=== PATIENT | male | born 1965 | race Caucasian/White ===

== ENCOUNTER → 2017-10-08 | Outpatient (CLI) | payer BC ==
--- NOTE | 2017-10-08 15:31 | SFUN ---
SLEEP STUDY FOLLOW UP NOTE DATE OF SERVICE: 10/08/2017 A 51-year-old gentleman who has been followed in the Sleep Center for treatment of obstructive sleep apnea-hypopnea syndrome. Recently patient had a home sleep apnea test which showed apnea-hypopnea index 44.2 with O2 saturation of 77%. After that, patient had CPAP titration and at the pressure at 8 cm of water. According to results of followup test, patient breathing was totally normal. I discussed results of the sleep studies with patient in details. Subsequently, patient was started on treatment with CPAP and today he came for the first followup visit after he received his CPAP unit. Patient is using his CPAP equipment every night and feels better with the machine during the night and during the day. I checked his CPAP unit. CPAP pressure is 8 cm of water, usage is / nights and more than 4 hours nights with the leak of 30 L/minute which is acceptable. Apnea-hypopnea index reading from the machine is 11.5. [place] Sleepiness Scale today is 7. MEDICATIONS: Amlodipine, omeprazole. PHYSICAL EXAM: Patient in no distress. BP 140/95, HR 91, RR 16, weight 233.2. Patient increased his weight on 9 pounds since the test. Temperature 97.6, oxygen saturation on room air 97%. OROPHARYNX: Low position of soft palate. Neck Supple, no JVD. Thyroid is not palpable. LUNGS Clear to percussion and to auscultation. Good air exchange. No wheezing or rhonchi. HEART S1, S2 regular. No murmurs, gallops, or rubs. ABDOMEN Soft and nontender. Bowel sounds are present. No organomegaly appreciated. EXTREMITIES No clubbing or cyanosis. TOE LINING CLOSER Awake, alert, and oriented X3. Cranial nerves 2 to 7 intact. There is no fasciculation or atrophy. noted. No focal deficits observed. IMPRESSION: 1. Severe obstructive sleep apnea-hypopnea syndrome, apnea-hypopnea index 44.2 with oxygen saturation to 77%. Results of home sleep apnea test which would underestimate the numbers from normal events. 2. Patient demonstrated good compliance with treatment benefitting from treatment. 3. Patient increased his weight 9 pounds since titration, mild obesity. 4. Hypertension. 5. Acid reflux. PLAN: 1. I will increase CPAP pressure to 10 cm of water. 2. Patient will continue to use CPAP equipment every night. 3. Losing weight. 4. Sleep hygiene with regular time in bed for at least 8 hours. 5. No driving if feeling any sleepiness. Thank you very much for allowing me to participate in the management of your patient. Sincerely, Bry Dumont MD, PhD, FAASM Diplomat of [place] [employer] Specialties [place] Board of Internal Medicine Repairer General of [facility] [place] MMODL / HEATHERN: [id number] /
== END | disposition home or self-care (01) ==
LOC: SLEEP 13:25
PROVIDERS: ATTEND Internal Medicine
DX: G47.33 Obstructive sleep apnea (adult) (pediatric) (principal); I10 Essential (primary) hypertension; K21.9 Gastro-esophageal reflux disease without esophagitis; Z79.899 Other long term (current) drug therapy; Z99.89 Dependence on other enabling machines and devices

== ENCOUNTER → 2018-02-04 | Outpatient (CLI) | payer BC ==
--- NOTE | 2018-02-04 15:07 | PN ---
PROGRESS NOTE DATE OF SERVICE: 02/04/2018 [id number] gentleman has been followed in Sleep Center for treatment of obstructive sleep apnea-hypopnea syndrome. During last visit, I increased pressure in his CPAP unit up to 10 cm of water. According to patient, he feels better with this regimen. He sleeps better and feels better during the day. [place] Sleepiness Scale today is 5. I checked patient's CPAP unit. CPAP pressure is 10 cm of water. Usage is every night more than 4 hours, 20/30 nights. Average usage 4.7 hours. Leak 22 L/minute, which is acceptable. Apnea-hypopnea index in the range of 8 for the last month and for the last night is 6. MEDICATIONS: Amlodipine, omeprazole. PHYSICAL EXAM: Patient in no distress. BP 148/93, HR 88, RR 16, height 6 feet 0, weight 229.2, BMI 31. Temperature 98.1. Oxygen saturation on room air 95%. Oropharynx: Low position of soft palate. Neck Supple, no JVD. Thyroid is not palpable. LUNGS Clear to percussion and to auscultation. Good air exchange. No wheezing or rhonchi. HEART S1, S2 regular. No murmurs, gallops, or rubs. ABDOMEN: Soft and nontender. Bowel sounds are present. No organomegaly appreciated. EXTREMITIES No clubbing or cyanosis. COMPANY MANAGER Awake, alert, and oriented X3. Cranial nerves 2 to 7 intact. There is no fasciculation or atrophy. noted. No focal deficits observed. IMPRESSION: 1. Severe obstructive sleep apnea-hypopnea syndrome; apnea-hypopnea index 44.2 with O2 desaturation to 77% by results of home sleep study which could be even more in reality. The patient demonstrated good compliance with treatment benefitting from treatment. 2. Hypertension. 3. Acid reflux. 4. Very mild obesity BMI 31. PLAN: 1. The machine will be increased to 11 cm of water. 2. Patient will continue to use CPAP equipment every night for the whole night. 3. Watching and losing weight. 4. Sleep hygiene with regular time in bed for at least 8 hours. 5. No driving if feeling sleepiness. Thank you very much for allowing me to participate in management of your patient. Sincerely, Bry Dumont MD, PhD, FAASM Diplomat of [employer] Specialties [employer] Board of Internal Medicine Disaster Response Director of [facility] [place] MMJACQUELINE / HEATHERN: [id number] /
== END | disposition home or self-care (01) ==
LOC: SLEEP 14:05
PROVIDERS: ATTEND Internal Medicine
DX: G47.33 Obstructive sleep apnea (adult) (pediatric) (principal); I10 Essential (primary) hypertension; K21.9 Gastro-esophageal reflux disease without esophagitis; E66.9 Obesity, unspecified; Z68.31 Body mass index [BMI] 31.0-31.9, adult; Z79.899 Other long term (current) drug therapy

== ENCOUNTER → 2019-03-17 | Outpatient (CLI) | payer BC ==
--- NOTE | 2019-03-17 17:38 | PN ---
PROGRESS NOTE DATE OF SERVICE: 03/17/2019 This patient is a 53-year-old gentleman who has been followed in Sleep Center for treatment of obstructive sleep apnea-hypopnea syndrome. During his previous visit, which was about one year ago, apnea-hypopnea index was in the range of 8 for the month, and for the last night it was 6. I increased the pressure from 10 cm of water up, and at present the patient is on a pressure of 12 cm of water. Patient is able to use equipment every night for the whole night without problems related to mask fitting, pressure or humidification, but he developed snoring while using CPAP equipment. [place] Sleepiness Scale today is 6, which is within normal range. I checked his CPAP unit. CPAP pressure is 12 cm of water. Usage is 30/30 nights, and 13/30 nights for more than 4 hours. Average usage 4 hours. Leak is 17 L/minute, which is in acceptable range for the usage of the full-face mask. Apnea-hypopnea index for the last month is 19.4 and for the last night 6.8; for the last one year, apnea- hypopnea index is 13.7, average. MEDICATIONS: 1. Amlodipine. 2. Omeprazole. PHYSICAL EXAMINATION: GENERAL: A pleasant patient in no distress. VITAL SIGNS: BP 149/83, HR 83, RR 16, weight 227 pounds, temperature 98.2. HEENT: PERRLA, EOMI. Evaluation of oropharynx showed tongue protrudes midline. Low position of soft palate. Mallampati III to IV. NECK: Supple. No JVD. Thyroid is not palpable. LUNGS: Clear to percussion and to auscultation. Good air exchange. No wheezing or rhonchi. HEART: S1, S2 regular. No murmurs, gallops or rubs. ABDOMEN: Soft and nontender. Bowel sounds are present. No organomegaly. EXTREMITIES: No clubbing or cyanosis. DISHCLOTH FOLDER: Awake, alert, and oriented X3. Cranial nerves 2 to 7 intact. There is no fasciculation or atrophy. noted. No focal deficits observed. IMPRESSION: 1. Severe obstructive sleep apnea-hypopnea syndrome with apnea-hypopnea index 44.2 and oxygen desaturation to 77%. The patient has continued to use equipment but developed snoring and increased apnea-hypopnea index according to the reading from the machine. Average index for the last year of 13.7. 2. Hypertension. 3. Acid reflux. 4. Mild obesity. PLAN: 1. I will change his machine to automatic regimen to the maximal range of pressure 18 and minimal pressure 5. 2. Patient will continue to use CPAP equipment every night for the whole night. 3. Sleep hygiene with regular time in bed for at least 8 hours. 4. No driving if feeling any sleepiness. 5. Follow-up visit in 2 to 3 months. Thank you very much for allowing me to participate in the management of your patient. Sincerely, Bry Dumont MD, PhD, FAASM Diplomat of [place] [employer] Specialties [employer] Board of Internal Medicine Tablet Making Machine Operator of [facility] [place] MMODL / IJN: [id number] /
== END | disposition home or self-care (01) ==
LOC: SLEEP 13:06
PROVIDERS: ATTEND Internal Medicine
DX: G47.33 Obstructive sleep apnea (adult) (pediatric) (principal); I10 Essential (primary) hypertension; K21.9 Gastro-esophageal reflux disease without esophagitis; E66.9 Obesity, unspecified; Z99.89 Dependence on other enabling machines and devices; Z79.899 Other long term (current) drug therapy

== ENCOUNTER → 2019-06-09 | Outpatient (CLI) | payer BC ==
--- NOTE | 2019-06-10 08:37 | PN ---
PROGRESS NOTE DATE OF SERVICE: 06/09/2019 [id number] gentleman who has been followed in Sleep Center for treatment of obstructive sleep apnea-hypopnea syndrome. The patient continues to his CPAP equipment every night and sleeps well with the machine. [place] Sleepiness Scale today is 6. During the previous visit which was about two months ago, apnea-hypopnea index was significantly increased to 19.4 and I changed the regimen of his machine to be a range of pressure 5 to 18 cm of water. I checked the patient's CPAP unit. Usage is 30/30 nights, and 18/30 nights for more than 4 hours with average usage 4.5 hours per night. Average pressure is 17.2 cm of water. Leak is 22 L/minute, which is borderline. Apnea-hypopnea index for the last month is only 3.6 which is absolutely normal range. MEDICATIONS: 1. Amlodipine. 2. Omeprazole. PHYSICAL EXAMINATION: GENERAL: During physical examination, patient in no distress. VITAL SIGNS: BP 151/97, HR around 100, RR 18, height 6 feet, weight 231 pounds, BMI 31.3, temperature 98.4, oxygen saturation on room air 97%. OROPHARYNX: Extremely low soft palate; Mallampati IV. HEENT: PERRLA, EOMI, evaluation of oropharynx showed tongue protrudes midline. NECK: Supple, no JVD. Thyroid is not palpable. LUNGS: Clear to percussion and to auscultation. Good air exchange. No wheezing or rhonchi. HEART: S1, S2 regular. No murmurs, gallops, or rubs. ABDOMEN: Soft and nontender. Bowel sounds are present. No organomegaly appreciated. EXTREMITIES: No clubbing or cyanosis. FOOD SCIENTIST: Awake, alert, and oriented X3. Cranial nerves 2 to 7 intact. There is no fasciculation or atrophy. noted. No focal deficits observed. IMPRESSION: 1. Severe obstructive sleep apnea-hypopnea syndrome with apnea-hypopnea index 44.2 presently on full control with CPAP. The patient demonstrated good compliance with treatment benefiting per patient from treatment. 2. Hypertension. 3. Acid reflux. 4. Mild obesity. PLAN: 1. The patient will continue to use CPAP equipment with the same regimen every night for the whole night. 2. Watching weight. 3. No driving if feeling any sleepiness. 4. Sleep hygiene with regular time in bed for 7 or 8 hours. 5. Followup visit in 1 year or earlier if patient has any problems. Thank you very much for allowing me to participate in the management of your patient. Sincerely, Bry Dumont MD, PhD, FAASM Diplomat of [place] [employer] Specialties [employer] Board of Internal Medicine Lead Press Operator of [facility] [place] MMODL / HEATHERN: [id number] /
== END | disposition home or self-care (01) ==
LOC: SLEEP 13:26
PROVIDERS: ATTEND Internal Medicine
DX: Z53.9 Procedure and treatment not carried out, unspecified reason (principal)

== ENCOUNTER → 2020-08-23 | Outpatient (CLI) | payer BC ==
--- NOTE | 2020-08-23 20:36 | SFUN ---
SLEEP CENTER FOLLOW UP NOTE DATE OF SERVICE: 08/23/2020 This is a 54-year-old gentleman who has been followed in Sleep Center for treatment of obstructive sleep apnea-hypopnea syndrome. Patient continues to use his CPAP equipment every night for the whole night. He does not experience significant problems with the machine. He is getting his supplies on time. [place] Sleepiness Scale today is 5. During his previous visit, apnea-hypopnea index was significantly increased at 19.4, and I changed the maximal pressure in the machine to 18. With this regimen during the previous visit, apnea-hypopnea index was only 3.6. I checked the patient's CPAP unit today. Range of the pressure is 5 to 18. Usage is every night, 30/30 nights, but 14/30 nights for last month for 3.7 hours. Leak is 23 L/minute. Average CPAP pressure is 17.1. Apnea-hypopnea index is 7.7, which includes apnea index 4.1. Apnea-hypopnea index for the whole year is 6.7. MEDICATIONS: 1. Amlodipine 10 mg once a day. 2. Omeprazole 20 mg once a day. PHYSICAL EXAMINATION: GENERAL: A pleasant patient in no distress. VITAL SIGNS: BP 152/95, HR 84, RR 15, height 6 feet 1/4 inch. Weight 233.8 pounds. Temperature 98.2, oxygen saturation at room air 97%. HEENT: PERRLA, EOMI. Evaluation of oropharynx showed tongue protrudes midline. Extremely low position of soft palate. Mallampati IV. NECK: Supple. No JVD. Thyroid is not palpable. LUNGS: Clear to percussion and to auscultation. Good air exchange. No wheezing or rhonchi. HEART: S1, S2 regular. No murmurs, gallops or rubs. ABDOMEN: Obese. EXTREMITIES: No clubbing or cyanosis. DIRECTOR GIFT: Awake, alert, and oriented X3. Cranial nerves 2 to 7 intact. There is no fasciculation or atrophy. noted. No focal deficits observed. IMPRESSION: 1. Severe obstructive sleep apnea-hypopnea syndrome. Original apnea-hypopnea index 44.2. The patient demonstrated good compliance with treatment, benefitting from treatment. Apnea-hypopnea index was slightly increased for the last year at 6.7. 2. Hypertension. 3. Acid reflux. 4. Mild obesity. PLAN: 1. I changed the range of the pressure from 5 to maximum 19 cm of water. 2. Patient will continue to use PAP equipment every night for the whole night. 3. Sleep hygiene with regular time in bed for at least 7-1/2 to 8 hours. 4. Precautions related to driving. No driving if feeling sleepiness. 5. I will maintain all necessary prescription for PAP supplies including mask, tube, filters. 6. Watching weight. 7. No driving if feeling sleepiness. 8. Follow-up visit in 6 months or earlier if patient has any problems. Thank you very much for allowing me to participate in the management of your patient. Sincerely, Bry Dumont MD, PhD, FAASM Diplomat of [place] Board of Medical Specialties [employer] Board of Internal Medicine Rocket Assembly Operator of [facility] [place] MMRACHIDL / HEATHERN: [id number] /
== END | disposition home or self-care (01) ==
LOC: SLEEP 14:52
PROVIDERS: ATTEND Internal Medicine
DX: G47.33 Obstructive sleep apnea (adult) (pediatric) (principal); I10 Essential (primary) hypertension; K21.9 Gastro-esophageal reflux disease without esophagitis; E66.9 Obesity, unspecified; Z99.89 Dependence on other enabling machines and devices; Z79.899 Other long term (current) drug therapy

== ENCOUNTER → 2021-03-28 | Outpatient (CLI) | payer BC ==
--- NOTE | 2021-03-28 21:11 | SFUN ---
SLEEP CENTER FOLLOW UP NOTE DATE OF SERVICE: 03/28/2021 This 55-year-old gentleman has been followed in Sleep Center for treatment of obstructive sleep apnea-hypopnea syndrome. The patient continues to use his CPAP equipment every night. He does not complain about any problems related to the machine or getting his supplies on time. [place] Sleepiness Scale today is 4, which is normal. During his previous visit, apnea-hypopnea index was increased to 7.7, and I changed the regimen in his machine to a maximum pressure of 19 cm of water. I checked his CPAP unit. Range of the pressure is 5-19 cm of water, average 16.5 cm of water. Usage is 30/30 nights and average time of usage is short at 2.7 hours. Leak is 20 L/minute, which is acceptable. Apnea-hypopnea index reduced to 3.8, which is normal. MEDICATIONS: 1. Amlodipine 10 mg once a day. 2. Omeprazole 20 mg once a day. PHYSICAL EXAMINATION: GENERAL: Pleasant patient in no distress. VITAL SIGNS: BP 143/90, HR 80, RR 15, height 6 feet 0 inches, weight 230, body mass index 31.1, temperature 97.5, oxygen saturation at room air 96%. HEENT: PERRLA, EOMI, evaluation of oropharynx showed tongue protrudes midline. Extremely low position of soft palate; Mallampati IV. NECK: Supple, no JVD. Thyroid is not palpable. LUNGS: Clear to percussion and to auscultation. Good air exchange. No wheezing or rhonchi. HEART: S1, S2 regular. No murmurs, gallops, or rubs. ABDOMEN: Slightly obese. EXTREMITIES: No clubbing or cyanosis. POWER SHOVEL OPERATOR HELPER: Awake, alert, and oriented X3. Cranial nerves 2 to 7 intact. There is no fasciculation or atrophy. noted. No focal deficits observed. IMPRESSION: 1. Severe obstructive sleep apnea-hypopnea syndrome. Original apnea-hypopnea index 44.2. The patient demonstrated 100% compliance with days of usage of machine, but some days it is quite short. Normal respiration on CPAP after pressure was adjusted during the last visit. Apnea-hypopnea index 3.8. 2. Hypertension. 3. Acid reflux. 4. Mild obesity. PLAN: 1. Patient will continue to use PAP equipment every night for the whole night. 2. Sleep hygiene with regular time in bed for at least 7-1/2 to 8 hours. 3. Precautions related to driving. No driving if feeling sleepiness. 4. I will maintain all necessary prescription for PAP supplies including mask, tube, filters. 5. Watching weight. 6. Follow-up visit in 6 months or earlier if patient has any problems. I spent 30 minutes with the patient and documentation. Thank you very much for allowing me to participate in the management of your patient. Sincerely, Bry Dumont MD, PhD, FAASM Diplomat of [place] [employer] Specialties Sleep Medicine Board of [place] Board of Internal Medicine Freight Hustler of [facility] [place] MMODL / IJN: [id number] /
== END ==
LOC: SLEEP 13:01
PROVIDERS: ATTEND Internal Medicine
DX: G47.33 Obstructive sleep apnea (adult) (pediatric) (principal); I10 Essential (primary) hypertension; K21.9 Gastro-esophageal reflux disease without esophagitis; E66.01 Morbid (severe) obesity due to excess calories; Z99.89 Dependence on other enabling machines and devices; Z68.31 Body mass index [BMI] 31.0-31.9, adult; Z79.899 Other long term (current) drug therapy

== ENCOUNTER → 2021-09-26 | Outpatient (CLI) | payer BC ==
--- NOTE | 2021-09-26 15:59 | SFUN ---
SLEEP CENTER FOLLOW UP NOTE DATE OF SERVICE: 09/26/2021 55-year-old gentleman has been followed in Sleep Center for treatment of obstructive sleep apnea-hypopnea syndrome. Patient continued to use CPAP equipment every night but some of the night takes mask off on the second part of the night. I checked CPAP unit is on automatic regimen. Range of the pressure 5-19 cm of water. Average pressure 18.1 cm of water, which is the same as during the previous visit. Usage 30/30 nights but only 7/30 nights more than 4 hours, average 3.2 hours per night. Leak is 14 L/minute which is acceptable, but apnea-hypopnea index increased to 17.7. During previous visit with the same parameters, Apnea-hypopnea index was only 3.8, although patient increased his weight on about 15 pounds compared with the previous visit. [place] Sleepiness Scale is 3. MEDICATIONS: Amlodipine 10 mg once a day, omeprazole 20 mg once a day, dicyclomine 20 mg twice a day. PHYSICAL EXAMINATION: GENERAL: Patient in no distress. BP 160/94, HR 102, RR 16, weight 245.4, height 6 feet 0, temperature 97.4, oxygen saturation at room air 95%. HEENT: PERRLA, EOMI, evaluation of oropharynx showed tongue protrudes midline. NECK: Supple, no JVD. Thyroid is not palpable. LUNGS: Clear to percussion and to auscultation. Good air exchange. No wheezing or rhonchi. HEART: S1, S2 regular. No murmurs, gallops, or rubs. ABDOMEN: Slightly obese. Soft and nontender. Bowel sounds are present. No organomegaly appreciated. EXTREMITIES: No clubbing or cyanosis. OUTREACH COUNSELOR: Awake, alert, and oriented X3. Cranial nerves 2 to 7 intact. There is no fasciculation or atrophy. noted. No focal deficits observed. IMPRESSION: 1. Severe obstructive sleep apnea-hypopnea syndrome; apnea-hypopnea index during the sleep study 44.2. The patient demonstrated borderline compliance with treatment, some of the nights does not use it on the second part of the night otherwise using it every night. Apnea-hypopnea index increased comparing with the previous visit. 2. Mild obesity. Patient increased his weight on 15 pounds compared with the previous visit. 3. Hypertension. 4. Acid reflux. PLAN: 1. I discussed the necessity to use CPAP equipment for the whole night. If the patient needs to get up and go to rest room in the middle of the night, he should not take mask off, disconnect the tube and then connect tube back. 2. I will increase maximal pressure in the machine to 20 cm of water. 3. Sleep hygiene with regular time in bed for at least 7-1/2 to 8 hours. 4. Precautions related to driving. No driving if feeling sleepiness. 5. I will maintain all necessary prescription for PAP supplies including mask, tube, filters. 6. Follow-up visit in 6 months or earlier if patient has any problems. Thank you very much for allowing me to participate in management of your patient. Sincerely, Bry Dumont MD, PhD, FAASM Diplomat of [place] Board of Medical Specialties Sleep Medicine Board of [place] Board of Internal Medicine Director Of Strategic Marketing of [facility] [place] JEWELS / HEATHERN: [id number] /
== END ==
LOC: SLEEP 13:05
PROVIDERS: ATTEND Internal Medicine
DX: G47.33 Obstructive sleep apnea (adult) (pediatric) (principal); E66.9 Obesity, unspecified; I10 Essential (primary) hypertension; K21.9 Gastro-esophageal reflux disease without esophagitis; Z99.89 Dependence on other enabling machines and devices

== ENCOUNTER 2021-12-17 06:46 | Day surgery (SDC) | payer BC ==
[2021-12-13 15:31] VITALS: BMI 33.5
[~2021-12-17 06:46] MED LIST: LACTATED RINGERS 1,000 ML IV SCH; LIDOCAINE 1% (10MG/ML) FOR IV START INTRADERMA PRN
[2021-12-17 07:09] VITALS: TEMP 98.1
[2021-12-17] MEDS ORDERED: PROPOFOL 10 MG/ML 20 ML VIAL IV ONE (07:50)
[2021-12-17] MEDS ORDERED: LIDOCAINE 2% INJ 20 MG/ML (2 ML VIAL) ONE (07:50)
--- NOTE | 2021-12-17 08:14 | P.PCN ---
Date of Procedure: 12/17/21 Procedure(s) Performed: Brief history: Patient is a pleasant 56-year-old white male scheduled for an elective upper endoscopy as well as colonoscopy as a part of evaluation of GERD/abdominal bloating and screening for colon cancer Procedure performed: Esophagogastroduodenoscopy with biopsy Colonoscopy and snare polypectomy Preoperative diagnosis: GERD/abdominal bloating Screening for colon cancer Anesthesia: MAC Procedure: After informed consent was obtained from the patient was brought into the en doscopy unit and IV sedation was administered by anesthesia under continuous monitoring. Initially upper endoscopy was done. The Olympus GF 160 video endoscope was inserted inserted into the mouth and esophagus intubated without any difficulty and was gradually advanced into the stomach and duodenum and carefully examined. The bulb and second part of the duodenum appeared normal. The scope was then withdrawn into the stomach adequately insufflated with air and upon careful examination the antrum had mild gastritis and a polyp in the antrum was biopsied. Because of the body, cardia and fundus appeared normal. The scope was then withdrawn into the esophagus. The GE junction was located at 40 cm to the incisors. It appeared regular with no erythema erosions or ulcerations. Rest of the esophagus appeared normal. Patient tolerated the procedure well. At this time the patient continued to remain sedation. Initial digital rectal examination was normal. Olympus CF 160 video colonoscope was then inserted into the rectum and gradually advanced to the cecum without any difficulty. Careful examination was performed as the scope was gradually being withdrawn. The prep was excellent. The cecum, ascending colon, transverse colon, descending colon, sigmoid colon and rectum appeared normal. The sigmoid: There was a 5 mm polyp that was removed by snare polypectomy. Retroflexion was performed in the rectum and no lesions were noted. Patient tolerated the procedure well. Impression: 1. Upper endoscopy revealed gastric polyps and mild gastritis 2. Colonoscopy revealed a 5 mm sigmoid: Polyp status post polypectomy. Recommendations: Findings of this examination were discussed with the patient as well as his family. He was advised to follow with the biopsy results. If the biopsy reveals adenoma he can have a repeat colonoscopy in 5 years. In regards to the abdominal bloating he will continue with omeprazole 20 mg daily and follow antireflux measures. She'll be seen in office in 3 weeks.
[2021-12-17 08:54] VITALS: BP 123/84; PULSE 96; RESP 14
== END 2021-12-17 08:57 | disposition home or self-care (01) ==
LOC: ORWHC2ENDO 06:46
PROVIDERS: ATTEND Internal Medicine Gastroenterology
DX: K63.5 Polyp of colon (principal); K21.9 Gastro-esophageal reflux disease without esophagitis; K29.50 Unspecified chronic gastritis without bleeding; K31.7 Polyp of stomach and duodenum
CPT/HCPCS: 45385; 43239; 88305; J2704; J2001

== ENCOUNTER → 2022-04-10 | Outpatient (CLI) | payer BC ==
--- NOTE | 2022-04-10 13:31 | P.PN ---
Subjective DATE: 04/10/2022 FOLLOW UP VISIT. Patient with obstructive sleep apnea hypopnea syndrome return to sleep center for follow-up visit. Information from previous visit have been reviewed. Patient is using PAP equipment every night for the whole night, getting PAP supplies in time. The patient does not have significant problems with the mask, PAP unit and humidification. [place] sleepiness scale is 2, which is perfect. I checked PAP unit. Air filter is in good shape. PAP unit pressure 5-20, average 19.3 cm H2O. Usage is 100 % for more then 4 hours, average 7 hours per night. Leak is 10 l/m, which is in acceptable range. Apnea Hypopnea Index is 4.2, which is normal. MEDICATIONS:1. Omeprazole 20 mg once a day 2. Amlodipine 10 mg once a day During physical exam: GENERAL: A pleasant patient without any distress. VITAL SIGNS: BP 158/91, HR 84, RR 16 , weight 241.4, temperature 98.2, oxygen saturation at room air 96 % . HEENT: PERRLA, EOMI.low position of soft palate.. NECK: Supple. No JVD. LUNGS: Clear to percussion and to auscultation. Good air exchange. No wheezing or rhonchi. HEART: S1, S2 regular. ABDOMEN: Soft and nontender.[] EXTREMITIES: No clubbing or cyanosis. STICKER MACHINE OPERATOR: Awake, alert, and oriented x3. No focal deficit. Impressions: 1. Obstructive sleep apnea-hypopnea syndrome. Patient demonstrated great compliance with treatment, benefiting from treatment. 2. Hypertension. 3. Mild obesity. 4. Acid reflux. Plan: 1. Continue using PAP equipment every night for the whole night. 2. To change air filter at least 1-2 times per month. 3. PAP unit should stay lower then position of the head. 4. Advised patient to remove all remaining water from humidifier canister daily and make it dry after each usage. Refill canister with fresh distilled water before each usage. 5. Sleep hygiene with regular time in bed for at least 8 hours. 6. Precautions related to driving. No driving if feel any sleepiness. 7. I will maintain prescription for PAP supplies including mask, tube, filters. 8. Follow up visit in 6 months or earlier if patient has any problems. 9. Watching weight. 10. Low sodium diet Thank you very much for allowing me to participate in the management of your patient. Bry Dumotn MD, PhD, FAASM. Diplomat of [place], Sleep Medicine Board by [employer] Commercial Illustrator of [facility] [place]
== END ==
LOC: SLEEP 13:08
PROVIDERS: ATTEND Internal Medicine
DX: G47.33 Obstructive sleep apnea (adult) (pediatric) (principal); I10 Essential (primary) hypertension; K21.9 Gastro-esophageal reflux disease without esophagitis; Z99.89 Dependence on other enabling machines and devices; Z79.899 Other long term (current) drug therapy
CPT/HCPCS: 99212

== ENCOUNTER → 2022-10-22 | Outpatient (CLI) | payer BC ==
--- NOTE | 2022-10-22 13:31 | P.PN ---
Subjective DATE: 10/22/2022 FOLLOW UP VISIT. Patient with obstructive sleep apnea hypopnea syndrome return to sleep center for follow-up visit. Information from previous visit have been reviewed. Patient is using PAP equipment every night for the whole night, getting PAP supplies in time. The patient does not have significant problems with the mask, PAP unit and humidification. [place] sleepiness scale is 3, which is normal. I checked information from PAP unit and explaining to the patient in details. PAP unit pressure 5-20, average 18.8 cm H2O. Usage is 100% and 90 % for more then 4 hours, average 7 hours per night. Leak is increased comparing with the previous visit to 27.4 l/m. Apnea Hypopnea Index is slightly increased to 7.1. MEDICATIONS:1. Omeprazole 20 mg once a day 2. Amlodipine 10 mg once a day 3. Amitriptyline 10 mg once a day During physical exam: GENERAL: A pleasant patient without any distress. VITAL SIGNS: BP 161/95, HR 90, RR 16, weight 244, temperature 98.2, oxygen saturation at room air 96 % . HEENT: PERRLA, EOMI.low position of soft palate, Mallapati 3. NECK: Supple. No JVD. LUNGS: Clear to percussion and to auscultation. Good air exchange. No wheezing or rhonchi. HEART: S1, S2 regular. ABDOMEN: Soft and nontender.[] EXTREMITIES: No clubbing or cyanosis. LEVEL VIAL SETTER: Awake, alert, and oriented x3. No focal deficit. Impressions: 1. Obstructive sleep apnea-hypopnea syndrome. Patient demonstrated great compliance with treatment, benefiting from treatment. 2. Mild obesity, body mass index 33.0. 3. Hypertension. 4. Acid reflux. Plan: 1. Continue using PAP equipment every night for the whole night. 2. To change air filter at least 1-2 times per month. 3. PAP unit should stay lower then position of the head. 4. Advised patient to remove all remaining water from humidifier canister daily and make it dry after each usage. Refill canister with fresh distilled water before each usage. 5. Sleep hygiene with regular time in bed for at least 8 hours. 6. Precautions related to driving. No driving if feel any sleepiness. 7. I will maintain prescription for PAP supplies including mask, tube, filters. 8. .Watching and losing weight. 9. Follow up visit in 6 months or earlier if patient has any problems Thank you very much for allowing me to participate in the management of your patient. Bry Dumont MD, PhD, FAASM. Diplomat of [place] [employer] Sleep Medicine, Sleep Medicine Board by [place] [employer] Electrician Underground of [facility] [place]
== END ==
LOC: SLEEP 13:02
PROVIDERS: ATTEND Internal Medicine
DX: G47.33 Obstructive sleep apnea (adult) (pediatric) (principal); E66.9 Obesity, unspecified; I10 Essential (primary) hypertension; K21.9 Gastro-esophageal reflux disease without esophagitis; Z68.33 Body mass index [BMI] 33.0-33.9, adult; Z79.899 Other long term (current) drug therapy; Z99.89 Dependence on other enabling machines and devices
CPT/HCPCS: 99212

== ENCOUNTER → 2023-04-29 | Outpatient (CLI) | payer BC ==
--- NOTE | 2023-04-29 14:24 | P.PN ---
Subjective DATE: 04/29/2023 FOLLOW UP VISIT. Patient with obstructive sleep apnea hypopnea syndrome return to sleep center for follow-up visit. Information from previous visit have been reviewed. Patient is using PAP equipment every night for the whole night, getting PAP supplies in time. The patient does not have significant problems with the mask, PAP unit and humidification. [place] sleepiness scale is 2. I checked information from PAP unit. PAP unit pressure 5-20, average 17.3 cm H2O. Usage is 97 % for more then 4 hours, average 7.8 hours per night. Leak is 15.7 l/m, which is in acceptable range. Apnea Hypopnea Index is 2.4, which is normal. MEDICATIONS:1. Omeprazole 20 mg once a day 2. Amlodipine 10 mg once a day 3. Amitriptyline 26 mg once a day 4. Rosuvastatin 5 mg once a day During physical exam: GENERAL: A pleasant patient without any distress. VITAL SIGNS: BP 155/98, HR 96, RR 18, weight 241.8, temperature 98.6, oxygen saturation at room air 97 % . HEENT: PERRLA, EOMI.low position of soft palate, Mallapati 3 . NECK: Supple. No JVD. LUNGS: Clear to percussion and to auscultation. Good air exchange. No wheezing or rhonchi. HEART: S1, S2 regular. ABDOMEN: Soft and nontender.[] EXTREMITIES: No clubbing or cyanosis. VINYL INSTALLER: Awake, alert, and oriented x3. No focal deficit. Impressions: 1. Obstructive sleep apnea-hypopnea syndrome. Patient demonstrated great compliance with treatment, benefiting from treatment. 2. Hypertension. 3. Hyperlipidemia. 4. Acid reflux. 5. Mild obesity, patient lost 3 pounds comparing with previous visit. Plan: 1. Continue using PAP equipment every night for the whole night. 2. To change air filter at least 1-2 times per month. 3. PAP unit should stay lower then position of the head. 4. Advised patient to remove all remaining water from humidifier canister daily and make it dry after each usage. Refill canister with fresh distilled water before each usage. 5. Sleep hygiene with regular time in bed for at least 8 hours. 6. Precautions related to driving. No driving if feel any sleepiness. 7. I will maintain prescription for PAP supplies including mask, tube, filters. 8. Follow up visit in 6 months or earlier if patient has any problems. 9. Watching weight. Thank you very much for allowing me to participate in the management of your patient. Bry Dumont MD, PhD, FAASM. Diplomat of [place] [employer] Medicine, Sleep Medicine Board by [place] [employer] Medicine Mixed Signal Design Engineer of [facility] [place]
== END ==
LOC: 3 N SLEEP 13:12
PROVIDERS: ATTEND Internal Medicine
DX: G47.33 Obstructive sleep apnea (adult) (pediatric) (principal); E66.9 Obesity, unspecified; E78.5 Hyperlipidemia, unspecified; I10 Essential (primary) hypertension; K21.9 Gastro-esophageal reflux disease without esophagitis; Z79.899 Other long term (current) drug therapy; Z99.89 Dependence on other enabling machines and devices
CPT/HCPCS: 99212

== ENCOUNTER → 2023-11-04 | Outpatient (CLI) | payer BC ==
[2023-11-04 13:23] VITALS: BP 157/93; PULSE 98; RESP 16; TEMP 98.6
--- NOTE | 2023-11-04 14:14 | P.PN ---
Subjective DATE: 11/04/2023 FOLLOW UP VISIT. Patient with obstructive sleep apnea hypopnea syndrome return to sleep center for follow-up visit. Information from previous visit have been reviewed. Patient is using PAP equipment every night for the whole night, getting PAP supplies in time. The patient does not have significant problems with the mask, PAP unit and humidification. [place] sleepiness scale is 3, which is normal. I checked information from PAP unit. PAP unit pressure 5-20, average 16.4 cm H2O. Usage is 100% for more then 4 hours, average 8 hours per night. Leak is slightly increased to 29.8 l/m. Apnea Hypopnea Index is 2.9, which is normal. MEDICATIONS:1. Amlodipine 10 mg once a day 2. Omeprazole 20 mg once a day 3. Losartan 50 mg once a day 4. Amitriptyline 25 mg once a day 5. Simvastatin 10 mg once a day During physical exam: GENERAL: A pleasant patient without any distress. VITAL SIGNS: Please see below, weight 255 pounds. HEENT: PERRLA, EOMI.low position of soft palate, Mallapati 3 . NECK: Supple. No JVD. LUNGS: Clear to percussion and to auscultation. Good air exchange. No wheezing or rhonchi. HEART: S1, S2 regular. ABDOMEN: Soft and nontender.[] EXTREMITIES: No clubbing or cyanosis. WATER CONTROL STATION ENGINEER: Awake, alert, and oriented x3. No focal deficit. Impressions: 1. Obstructive sleep apnea-hypopnea syndrome. Patient demonstrated great compliance with treatment, benefiting from treatment. 2. Obesity, BMI 35.0, patient increased weight on 14 pounds comparing with previous visit. 3. Hypertension. 4. Hyperlipidemia. 5. Acid reflux. Plan: 1. Continue using PAP equipment every night for the whole night. 2. To change air filter at least 1-2 times per month. 3. PAP unit should stay lower then position of the head. 4. Advised patient to remove all remaining water from humidifier canister daily and make it dry after each usage. Refill canister with fresh distilled water before each usage. 5. Sleep hygiene with regular time in bed for at least 8 hours. 6. Precautions related to driving. No driving if feel any sleepiness. 7. I will maintain prescription for PAP supplies including mask, tube, filters. 8. Follow up visit in 6 months or earlier if patient has any problems. 9. Watching and losing weight. Thank you very much for allowing me to participate in the management of your patient. Bry Dumont MD, PhD, FAASM. Diplomat of [place] [employer] Sleep Medicine, Sleep Medicine Board by [place] [employer] Medicine Certified Ophthalmic Technologist of [facility] [place] Objective - Vital Signs Vital signs: Vital Signs Temp 98.6 F 11/04/23 13:20 Pulse 98 11/04/23 13:20 Resp 16 11/04/23 13:20 BP 157/93 11/04/23 13:20 Pulse Ox 96 11/04/23 13:20 FiO2 Intake & Output 11/03/23 11/04/23 11/04/23 18:59 06:59 18:59 Weight 115.666 kg
== END ==
LOC: 3 N SLEEP 13:05
PROVIDERS: ATTEND Internal Medicine
DX: G47.33 Obstructive sleep apnea (adult) (pediatric) (principal); E66.9 Obesity, unspecified; I10 Essential (primary) hypertension; E78.5 Hyperlipidemia, unspecified; K21.9 Gastro-esophageal reflux disease without esophagitis; Z68.35 Body mass index [BMI] 35.0-35.9, adult; Z79.899 Other long term (current) drug therapy; Z99.89 Dependence on other enabling machines and devices
CPT/HCPCS: 99212

== ENCOUNTER → 2024-06-16 | Outpatient (CLI) | payer BC ==
[2024-06-16 13:43] VITALS: BP 137/88; PULSE 98; RESP 16; TEMP 98.3
--- NOTE | 2024-06-16 13:50 | P.PROGSL ---
Subjective DATE: 06/16/2024 FOLLOW UP VISIT. Patient with obstructive sleep apnea hypopnea syndrome return to sleep center for follow-up visit. Information from previous visit have been reviewed. Patient is using PAP equipment every night for the whole night, getting PAP supplies in time. The patient does not have significant problems with the mask, PAP unit and humidification. [place] sleepiness scale is 2, which is perfect. I checked information from PAP unit. PAP unit pressure 5-20, average 12 cm H2O. Usage is 100% for more then 4 hours, average 8.2 hours per night. Leak is 25 l/m, which is in acceptable range. Apnea Hypopnea Index is 0.9, which is normal. MEDICATIONS have been reviewed, please see below. During physical exam: GENERAL: A pleasant patient without any distress. VITAL SIGNS: Please see below, weight is 261.4 lbs. HEENT: PERRLA, EOMI.low position of soft palate, Mallapati 3. NECK: Supple. No JVD. LUNGS: Clear to percussion and to auscultation. Good air exchange. No wheezing or rhonchi. HEART: S1, S2 regular. ABDOMEN: Soft and nontender. Slightly obese EXTREMITIES: No clubbing or cyanosis. WEED CONTROL INSPECTOR: Awake, alert, and oriented x3. No focal deficit. Impressions: 1. Obstructive sleep apnea-hypopnea syndrome. Patient demonstrated great compliance with treatment, benefiting from treatment. 2. Mild obesity, BMI 35.8, patient increased weight on 6 pounds comparing with previous visit. 3. Hypertension. 4. Acid reflux. 5. Hyperlipidemia. Plan: 1. Continue using PAP equipment every night for the whole night. 2. Sleep hygiene with regular time in bed for at least 7.5-8 hours 3. PAP unit should stay lower then position of the head. 4. Advised patient to remove all remaining water from humidifier canister daily and make it dry after each usage. Refill canister with fresh distilled water before each usage. 5. Watching and losing weight. 6. Precautions related to driving. No driving if feel any sleepiness. 7. I will maintain prescription for PAP supplies including mask, tube, filters. 8. Follow up visit in 8 months or earlier if patient has any problems. Thank you very much for allowing me to participate in the management of your patient. Bry Dumont MD, PhD, FAASM. Diplomat of [employer] Sleep Medicine, Sleep Medicine Board by [employer] Medicine Registrar [facility] [place] Objective - Vital Signs Vital Signs: Vital Signs Temp 98.3 F 06/16/24 13:40 Pulse 98 06/16/24 13:40 Resp 16 06/16/24 13:40 BP 137/88 06/16/24 13:40 Pulse Ox 94 L 06/16/24 13:40 FiO2 Intake & Output 06/15/24 06/16/24 06/16/24 18:59 06:59 18:59 Weight 118.501 kg Home Medications: Home Medications Medication Instructions Recorded Confirmed Type Omeprazole [PriLOSEC] 20 mg PO [id number] 12/13/21 06/16/24 History amLODIPine [Norvasc] 5 mg PO DAILY@1300 12/13/21 06/16/24 History Amitriptyline HCl [Elavil] 25 mg PO HS 11/04/23 06/16/24 History Losartan [Cozaar] 50 mg PO BID 11/04/23 06/16/24 History Simvastatin [Zocor] 10 mg PO HS 11/04/23 06/16/24 History Spironolactone 25 mg PO DAILY 06/16/24 06/16/24 History
== END ==
LOC: 3 N SLEEP 13:06
PROVIDERS: ATTEND Internal Medicine
DX: G47.33 Obstructive sleep apnea (adult) (pediatric) (principal); I10 Essential (primary) hypertension; E78.5 Hyperlipidemia, unspecified; K21.9 Gastro-esophageal reflux disease without esophagitis; E66.9 Obesity, unspecified; Z68.35 Body mass index [BMI] 35.0-35.9, adult
CPT/HCPCS: 99212